=== PATIENT | female | born 1985 | race Caucasian/White ===

== ENCOUNTER 2016-03-24 14:27 | Emergency (ER) | payer BC, OTHER ==
[~2016-03-24] VITALS: Ht 170.2 cm; Wt 77.1 kg
[~2016-03-24 14:27] MED LIST: ADV1DS; ALBU17AE3; CIPR500T21 PO; ESOM20CA32 PO; LRT10T; METR500T PO; MTF500TCR; MULT-608 PO; NF-ESOM40C PO; OMEG-12 PO; OMG1KC; PRILOSEC; PRV20T; SPRN25T; VRP80T; YAZ
--- OUTSIDE RECORDS SUMMARY | 2016-03-24 14:32 | XMS REPORT | Continuity of Care Document ---
Author Author [facility] Organization [facility] Address Unknown Phone Unavailable Care Team Providers Care Field Interviewer Name Role Phone Allyson Webster PCP [phone] Source Comments Some departments are not documenting in the electronic medical record. If you do not see the information that you expected, contact Release of Information in the Health Information Management department at [phone] for further assistance in locating additional records.[facility] Active Allergies and Adverse Reactions No Known Allergies Current Medications Prescription Sig. Disp. Refills Start End Date Status Date Alosetron (LOTRONEX) 0.5 Take by mouth twice Active mg tab daily. esomeprazole DR(+) Take 40 mg by mouth every Active (NEXIUM) 40 mg capsule morning. Take on an empty stomach at least 1 hour before or 2 hours after food. MULTIVITAMIN PO Take by mouth daily. Active Active Problems Not on file Social History Tobacco Use Types Packs/Day Years Used Date Former Smoker Cigarettes Smokeless Tobacco: Former User Comments: Quit 5 years ago Alcohol Use Drinks/Week oz/Week Comments Yes 0 Standard 0.0 drinks or equivalent Last Filed Vital Signs Vital Sign Reading Time Taken Blood Pressure 125/68 12/19/2015 9:13 AM CDT Pulse 64 12/19/2015 9:13 AM CDT Temperature 36.8 C (98.2 F) 12/19/2015 9:13 AM CDT Respiratory Rate 20 12/19/2015 9:13 AM CDT Height 1.702 m (5' 7") 12/19/2015 9:13 AM CDT Weight 76.204 kg (168 lb) 12/19/2015 9:13 AM CDT Body Mass Index 26.31 12/19/2015 9:13 AM CDT Oxygen Saturation 100% 12/19/2015 9:13 AM CDT Plan of Care Health Maintenance Due Date Last Done Comments Physical (Comprehensive) 12/06/1990 Exam Pertussis Vaccine 12/06/1994 Tetanus Vaccine 12/06/2000 Cervical Cancer Screening 12/06/2004 Influenza Vaccine 10/26/2015 Results from Last 3 Months Not on file
--- NOTE | 2016-03-24 14:40 | ED Abdominal Pain ---
General Stated Complaint: DEHYDRATION/VOMITING/DIARRHEA Source of Information: Patient Exam Limitations: No Limitations History of Present Illness Time Seen By Provider: 14:39 Initial Comments To ER with nausea, and watery diarrhea without mucus or blood for 2 days. absence of vomiting. No fevers but she does report chills. She reports a history of Clostridium difficile infection last year she states but has not had any antibiotics recently. Timing/Duration: 2-3 Days Severity/Quality: Moderate, Aching Radiation: No Radiation Activities at Onset: None Associated Symptoms: Heartburn Nausea/Vomiting Allergies and Home Medications Allergies Coded Allergies: Latex (Verified Allergy, Unknown, 09/04/07) Home Medications Alosetron HCl 0.5 Mg Tab 0.5 MG PO BID (Reported) Esomeprazole Magnesium 22.3 Mg Capsule.dr 22.3 MG PO DAILY (Reported) Hyoscyamine Sulfate 0.125 Mg Tab.subl #20 0.125 MG SL Q6H PRN PRN CRAMPS Prescribed by: NANCY GONSALEZ on 03/24/16 1455 Loratadine 10 Mg Tablet 10 MG PO (Reported) Ondansetron 8 Mg Tab.rapdis #10 8 MG PO Q6H PRN PRN NAUSEA/VOMITING Prescribed by: NANCY GONSALEZ on 03/24/16 1455 Review of Systems Constitutional: see HPI chillsNo fever EENTM: No Symptoms Reported Respiratory: No Symptoms Reported Cardiovascular: No Symptoms Reported Gastrointestinal: See HPI Abdominal Pain Diarrhea Nausea Vomiting Genitourinary: No Symptoms Reported Musculoskeletal: no symptoms reported Skin: no symptoms reported Psychiatric/Neurological: No Symptoms Reported Endocrine: No Symptoms Reported Past Vwiuzop-Zwcemq-Acdddu Hx Patient Social History Recent Foreign Travel: No Contact w/Someone Who Travel: No Immunizations Up To Date Tetanus Booster (TDap): More than 5yrs PED Vaccines UTD: No Date of Influenza Vaccine: Dec 08, 2014 Surgeries HX Surgeries: Yes Surgeries: Gallbladder Respiratory Hx Respiratory Disorders: Yes Respiratory Disorders: Asthma Cardiovascular Hx Cardiac Disorders: No Neurological Hx Neurological Disorders: No Reproductive System Hx Reproductive Disorders: No Sexually Transmitted Disease: No Female Reproductive Disorders: Polycystic Ovarian Dis [employer] History: Hysterectomy Genitourinary Hx Genitourinary Disorders: No Gastrointestinal Hx Gastrointestinal Disorders: Yes (POST INFECTIOUS IBS WITH SPREW) Gastrointestinal Disorders: Colitis, Diverticulosis, Chronic Diarrhea, Irritable Bowel Musculoskeletal Hx Musculoskeletal Disorders: Yes (BACK PAIN ) Endocrine Hx Endocrine Disorders: No HEENT HX ENT Disorders: No Loss of Vision: Denies Hearing Impairment: Denies Cancer Hx Cancer: No Psychosocial Hx Psychiatric Problems: Yes Behavioral Health Disorders: Anxiety, Depression Integumentary HX Skin/Integumentary Disorder: No Blood Transfusions Hx Blood Disorders: No Family Medical History Family Medial History: Aphasia PARENTAL GRANDMOTHER Arthritis Cardiovascular disease 19 MOTHER MATERNAL GRANDFATHER Dementia Diabetes mellitus 19 MOTHER Hypercholesterolemia PARENTAL GRANDMOTHER Hypertension 19 MOTHER PARENTAL GRANDMOTHER MATERNAL GRANDFATHER Prostate cancer MATERNAL GRANDFATHER Physical Exam Vital Signs VS - Last 72 Hours, by Label 03/24/16 14:35 Temp 98.7 Pulse 85 Resp 14 B/P 152/83 Pulse Ox 100 O2 Delivery Room Air Capillary Refill : General Appearance: WD/WN no apparent distress HEENT: PERRL/EOMI normal ENT inspection Neck: non-tender full range of motion Respiratory: no respiratory distress no accessory muscle use Gastrointestinal: normal bowel sounds soft Extremities: normal range of motion non-tender normal inspection Neurologic/Psychiatric: alert normal mood/affect oriented x 3 Skin: normal color warm/dry Progress/Results/Core Measures Results/Orders Lab Results Laboratory Tests Test 03/24/16 14:35 03/24/16 15:32 Range/Units Alanine Aminotransferase (ALT/SGPT) 17 0-55 U/L Albumin 4.7 H 3.2-4.5 G/DL Alkaline Phosphatase 50 40-136 U/L Anion Gap 10 5-14 MMOL/L Aspartate Amino Transf (AST/SGOT) 16 5-34 U/L BUN/Creatinine Ratio 18 Basophils # (Auto) 0.0 0.0-0.1 10^3/uL Basophils (%) (Auto) 0 0-10 % Blood Urea Nitrogen 16 7-18 MG/DL Calcium Level 9.4 8.5-10.1 MG/DL Carbon Dioxide Level 23 21-32 MMOL/L Chloride Level 105 98-107 MMOL/L Creatinine 0.88 0.60-1.30 MG/DL Eosinophils # (Auto) 0.1 0.0-0.3 10^3/uL Eosinophils (%) (Auto) 1 0-10 % Estimat Glomerular Filtration Rate > 60 Glucose Level 113 H 70-105 MG/DL Hematocrit 40 35-52 % Hemoglobin 13.7 11.5-16.0 G/DL Lymphocytes # (Auto) 2.8 1.0-4.0 X 10^3 Lymphocytes (%) (Auto) 38 12-44 % Mean Corpuscular Hemoglobin 33 25-34 PG Mean Corpuscular Hemoglobin Concent 35 32-36 G/DL Mean Corpuscular Volume 96 80-99 FL Mean Platelet Volume 11.2 H 7.4-10.4 FL Monocytes # (Auto) 0.6 0.0-1.0 X 10^3 Monocytes (%) (Auto) 8 0-12 % Neutrophils # (Auto) 4.0 1.8-7.8 X 10^3 Neutrophils (%) (Auto) 53 42-75 % Platelet Count 198 130-400 10^3/uL Potassium Level 3.8 3.6-5.0 MMOL/L Red Blood Count 4.13 L 4.35-5.85 10^6/uL Red Cell Distribution Width 11.8 10.0-14.5 % Sodium Level 138 135-145 MMOL/L Total Bilirubin 0.7 0.1-1.0 MG/DL Total Protein 7.6 6.4-8.2 G/DL White Blood Count 7.5 4.3-11.0 10^3/uL Urine Bacteria NEGATIVE /HPF Urine Bilirubin NEGATIVE NEGATIVE Urine Casts NONE /LPF Urine Clarity CLEAR Urine Color YELLOW Urine Crystals NONE /LPF Urine Culture Indicated NO Urine Glucose (UA) NEGATIVE NEGATIVE Urine Ketones NEGATIVE NEGATIVE Urine Leukocyte Esterase NEGATIVE NEGATIVE Urine Mucus NEGATIVE /LPF Urine Nitrite NEGATIVE NEGATIVE Urine Protein NEGATIVE NEGATIVE Urine RBC NONE /HPF Urine RBC (Auto) NEGATIVE NEGATIVE Urine Specific [place] 1.010 L 1.016-1.022 Urine Squamous Epithelial Cells 5-10 /HPF Urine Urobilinogen NORMAL NORMAL MG/DL Urine WBC NONE /HPF Urine pH 6 5-9 My Orders Orders-NANCY GONSALEZ [employer]ATOR Cbc With Automated Diff (03/24/16 14:31) Comprehensive Metabolic Panel (03/24/16 14:31) Ua Culture If Indicated (03/24/16 14:31) Saline Lock/Iv-Start (03/24/16 14:31) Urine Bedside (03/24/16 14:31) Ns Iv 1000 Ml (Sodium Chloride 0.9%) (03/24/16 14:45) Ondansetron Injection (Zofran Injectio (03/24/16 14:45) Hyoscyamine Sl Tablet (Levsin Sl Tablet) (03/24/16 14:45) Urine Bedside (03/24/16 16:00) Medications Given in ED Current Medications Medications Dose Ordered Sig/Luana Route Start Time Stop Time Status Last Admin Dose Admin Hyoscyamine Sulfate 0.25 mg ONCE ONCE PO 03/24/16 14:45 03/24/16 14:46 DC 03/24/16 14:44 0.25 MG Ondansetron HCl 4 mg ONCE ONCE IVP 03/24/16 14:45 03/24/16 14:46 DC 03/24/16 14:44 4 MG Vital Signs/I&O Vital Sign - Last 12Hours 03/24/16 14:35 Temp 98.7 Pulse 85 Resp 14 B/P 152/83 Pulse Ox 100 O2 Delivery Room Air Departure Impression Impression: Primary Impression: nausea and diarrhea Additional Impression: Epigastric pain Disposition: HOME, SELF-CARE Condition: Stable Departure-Patient Inst. Decision time for Depature: 14:54 Referrals: MAEVE VEE DO (PCP/Family) Primary Care Physician Patient Instructions: NO INSTRUCTIONS GIVEN Add. Discharge Instructions: 1. Drink plenty of fluids 2. Medication as directed 3. See Dr. Vee later this week Scripts Ondansetron (Zofran Odt)8 Mg Tab.rapdis8 Mg PO Q6H PRN NAUSEA/VOMITING #10 TAB Prov:NANCY GONSALEZ [employer]PERATOR 03/24/16 Hyoscyamine Sulfate (Levsin-Sl)0.125 Mg Tab.subl0.125 Mg SL Q6H PRN CRAMPS #20 TAB Prov:NANCY GONSALEZ B[employer] OPERATOR 03/24/16 Copy Copies To 1: MAEVE VEE PETER J B[employer] M[employer] OPERATOR Mar 24, 2016 14:40
[2016-03-24 14:44] LABS: BASOPHILS % (AUTO) 0 % (0-10); EOSINOPHILS # (AUTO) 0.1 10^3/uL (0.0-0.3); EOSINOPHILS % (AUTO) 1 % (0-10); LYMPHOCYTES # (AUTO) 2.8 X 10^3 (1.0-4.0); LYMPHOCYTES % (AUTO) 38 % (12-44); MEAN CORPUSCULAR HEMOGLOBIN 33 PG (25-34); MEAN CORPUSCULAR HGB CONC 35 G/DL (32-36); MEAN CORPUSCULAR VOLUME 96 FL (80-99); MEAN PLATELET VOLUME 11.2 FL (7.4-10.4); MONOCYTES # (AUTO) 0.6 X 10^3 (0.0-1.0); MONOCYTES % (AUTO) 8 % (0-12); NEUTROPHILS % (AUTO) 53 % (42-75); PLATELET COUNT 198 10^3/uL (130-400); RED BLOOD COUNT 4.13 10^6/uL (4.35-5.85); RED CELL DISTRIBUTION WIDTH 11.8 % (10.0-14.5); WHITE BLOOD COUNT 7.5 10^3/uL (4.3-11.0)
[2016-03-24] MEDS ORDERED: NS IV 1000 ML 1,000 ML IV SCH (14:45)
[2016-03-24] MEDS ORDERED: HYOSCYAMINE 0.125 MG (LEVSIN) TAB PO ONE (14:45)
[2016-03-24] MEDS ORDERED: ONDANSETRON 4 MG/2 ML (SDV) Z0FRAN IVP ONE (14:45)
[2016-03-24] MEDS ORDERED: HYOS0.1283 SL ×2 (14:55→16:19)
[2016-03-24] MEDS ORDERED: ONDA8TAB9 PO ×2 (14:55→16:19)
[2016-03-24] MEDS ORDERED: LORA10TA76 PO (15:00)
[2016-03-24] MEDS ORDERED: NFALOSE0.5 PO (15:00)
[2016-03-24 15:02] LABS: ALANINE AMINOTRANSFERASE 17 U/L (0-55); ALBUMIN 4.7 G/DL (3.2-4.5); ANION GAP 10 MMOL/L (5-14); ASPARTATE AMINO TRANSFERASE 16 U/L (5-34); BILIRUBIN,TOTAL 0.7 MG/DL (0.1-1.0); BLOOD UREA NITROGEN 16 MG/DL (7-18); BUN/CREATININE RATIO 18; CALCIUM 9.4 MG/DL (8.5-10.1); CARBON DIOXIDE 23 MMOL/L (21-32); CHLORIDE 105 MMOL/L (98-107); CREATININE SERUM 0.88 MG/DL (0.60-1.30); GFR ESTIMATED > 60; GLUCOSE 113 MG/DL (70-105); POTASSIUM 3.8 MMOL/L (3.6-5.0); SODIUM 138 MMOL/L (135-145); TOTAL PROTEIN 7.6 G/DL (6.4-8.2)
[2016-03-24 15:37] LABS: BILIRUBIN,URINE NEGATIVE (NEGATIVE); KETONES,URINE NEGATIVE (NEGATIVE); LEUKOCYTE ESTERASE ,URINE NEGATIVE (NEGATIVE); NITRITE,URINE NEGATIVE (NEGATIVE); PH,URINE 6 (5-9); PROTEIN,URINE NEGATIVE (NEGATIVE); UROBILINOGEN,URINE NORMAL (NORMAL)
[2016-03-24 16:20] VITALS: BP 120/66
== END 2016-03-24 16:19 | disposition home or self-care (01) ==
LOC: EDUNIT# 14:27 → ER 14:29
DX: R19.7 Diarrhea, unspecified (principal); R11.0 Nausea; R10.13 Epigastric pain
CPT/HCPCS: 36415; 80053; 81000; 84703; 85025; 96361; 96374

== ENCOUNTER → 2016-03-27 | Outpatient (CLI) | payer OTHER ==
[~2016-03-27] MED LIST changes: +HYOS0.1283 SL; +LORA10TA76 PO; +NFALOSE0.5 PO; +ONDA8TAB9 PO
[2016-03-29 12:25] LABS: HERPES SIMPLEX VIRUS 1 IGG/EIA 1.86 Index (0.00-0.90); HERPES SIMPLEX VIRUS 2 IGG EIA 0.17 Index (0.00-0.90)
[2016-03-29 16:50] LABS: HERPES SIMPLEX 1 & 2 IGM AB 7.24 Index (0.00-0.89)
[2016-04-03 13:39] LABS: HERPES SIMPLEX VIRUS 1 IGM IFA <1:10 (<1:10)
[2016-04-03 13:41] LABS: HERPES SIMPLEX VIRUS 2 IGM IFA <1:10 (<1:10)
== END ==
LOC: LAB 11:27
PROVIDERS: ATTEND Nurse Practitioner
DX: B00.9 Herpesviral infection, unspecified (principal)
CPT/HCPCS: 36415; 86695; 86696

== ENCOUNTER 2016-08-14 14:13 | Emergency (ER) | payer SELFPAY ==
[~2016-08-14] VITALS: Ht 170.2 cm; Wt 77.1 kg
[2016-08-14] MEDS ORDERED: NS IV 1000 ML 1,000 ML IV ONE (15:03)
[2016-08-14] MEDS ORDERED: KETOROLAC 30 MG/ML VIAL IVP STA (15:03)
[2016-08-14 15:09] LABS: BASOPHILS % (AUTO) 0 % (0-10); EOSINOPHILS % (AUTO) 1 % (0-10); LYMPHOCYTES % (AUTO) 38 % (12-44); MEAN CORPUSCULAR HEMOGLOBIN 32 PG (25-34); MEAN CORPUSCULAR HGB CONC 34 G/DL (32-36); MEAN CORPUSCULAR VOLUME 97 FL (80-99); MEAN PLATELET VOLUME 11.5 FL (7.4-10.4); MONOCYTES # (AUTO) 0.6 X 10^3 (0.0-1.0); MONOCYTES % (AUTO) 8 % (0-12); NEUTROPHILS # (AUTO) 4.2 X 10^3 (1.8-7.8); NEUTROPHILS % (AUTO) 53 % (42-75); PLATELET COUNT 188 10^3/uL (130-400); RED BLOOD COUNT 4.04 10^6/uL (4.35-5.85); RED CELL DISTRIBUTION WIDTH 12.5 % (10.0-14.5); WHITE BLOOD COUNT 7.8 10^3/uL (4.3-11.0)
--- NOTE | 2016-08-14 15:14 | ED General ---
General Chief Complaint: Abdominal/GI Problems Stated Complaint: body aches/nausea/lethargic Nursing Triage Note: PT AMBULATED TO ROOM. PT STATES SHE HAS GENERAL BODY ACHES SINCE THIS WEEKEND. ACID IN HER BELLY AND "BURPING LIKE CRAZY". PT ALSO COMPLAINS OF PELVIC PAIN. Nursing Sepsis Screen: No Definite Risk Source of Information: Patient Exam Limitations: No Limitations History of Present Illness Time Seen by Provider: 14:58 Initial Comments Here with report of generalized body aches and abdominal pain. Feels epigastric discomfort and lower abdominal pain. States that she does have IBS and takes meds for that. She denies vomiting but states that she has quite a bit of nausea. Denies diarrhea but felt cramping. All of this is been going on for the last 3-4 days. Timing/Duration: 3-4 Days Severity: Moderate Associated Systoms: No Chest Pain, No Cough, Fever/Chills, Headaches, Loss of Appetite, Nausea/Vomiting, No Weakness Allergies and Home Medications Allergies Coded Allergies: Latex (Verified Allergy, Unknown, 09/04/07) Home Medications Alosetron HCl 0.5 Mg Tab, 0.5 MG PO BID, (Reported) Esomeprazole Magnesium 22.3 Mg Capsule.dr, 22.3 MG PO DAILY, (Reported) Hyoscyamine Sulfate 0.125 Mg Tab.subl, 0.125 MG SL Q6H PRN for CRAMPS, #20 . Prescribed by: NANCY GONSALEZ on 03/24/161618 Loratadine 10 Mg Tablet, 10 MG PO, (Reported) Ondansetron 8 Mg Tab.rapdis, 8 MG PO Q6H PRN for NAUSEA/VOMITING, #10 . Prescribed by: NANCY GONSALEZ on 03/24/161618 Constitutional: see HPI, chills, No fever EENTM: no symptoms reported Respiratory: no symptoms reported Cardiovascular: no symptoms reported Gastrointestinal: see HPI, abdominal pain, nausea, No vomiting Genitourinary: no symptoms reported Musculoskeletal: see HPI, muscle pain Skin: no symptoms reported All Other Systems Reviewed Negative Unless Noted: Yes Past Vrfwndy-Gbdpyw-Bydcgn Hx Patient Social History Alcohol Use: Rarely Uses Recreational Drug Use: No Smoking Status: Never a Smoker 2nd Hand Smoke Exposure: No Recent Foreign Travel: No Contact w/Someone Who Travel: No Recent Infectious Disease Expo: No Recent Hopitalizations: No Immunizations Up To Date Tetanus Booster (TDap): More than 5yrs PED Vaccines UTD: No Date of Influenza Vaccine: Dec 08, 2014 Seasonal Allergies Seasonal Allergies: Yes Surgeries HX Surgeries: Yes Surgeries: Adenoidectomy, Gallbladder, Hysterectomy, Tonsillectomy Respiratory Hx Respiratory Disorders: Yes Respiratory Disorders: Asthma Cardiovascular Hx Cardiac Disorders: No Neurological Hx Neurological Disorders: No Reproductive System Hx Reproductive Disorders: No Sexually Transmitted Disease: No Female Reproductive Disorders: Polycystic Ovarian Dis HOSPITAL NURSE History: Hysterectomy Genitourinary Hx Genitourinary Disorders: No Gastrointestinal Hx Gastrointestinal Disorders: Yes (POST INFECTIOUS IBS WITH SPREW) Gastrointestinal Disorders: Irritable Bowel Musculoskeletal Hx Musculoskeletal Disorders: Yes (BACK PAIN ) Endocrine Hx Endocrine Disorders: No HEENT HX ENT Disorders: No Loss of Vision: Denies Hearing Impairment: Denies Cancer Hx Cancer: No Psychosocial Hx Psychiatric Problems: Yes Behavioral Health Disorders: Anxiety, Depression Integumentary HX Skin/Integumentary Disorder: No Blood Transfusions Hx Blood Disorders: No Reviewed Nursing Assessment Reviewed/Agree w Nursing PMH: Yes Family Medical History Family Medial History: Aphasia PARENTAL GRANDMOTHER Arthritis Cardiovascular disease 19 MOTHER MATERNAL GRANDFATHER Dementia Diabetes mellitus 19 MOTHER Hypercholesterolemia PARENTAL GRANDMOTHER Hypertension 19 MOTHER PARENTAL GRANDMOTHER MATERNAL GRANDFATHER Prostate cancer MATERNAL GRANDFATHER Physical Exam Vital Signs Vital Sign - Last 12Hours 08/14/16 14:31 Temp 98.7 Pulse 72 Resp 20 B/P (MAP) 139/94 Pulse Ox 99 O2 Delivery Room Air Capillary Refill : Less Than 3 Seconds General Appearance: No Apparent Distress, WD/WN HEENT: PERRL/EOMI, TMs Normal, Pharynx Normal Neck: Full Range of Motion, Normal Inspection, Non Tender Respiratory: Lungs Clear, Normal Breath Sounds Cardiovascular: Regular Rate, Rhythm, No Murmur Gastrointestinal: Non Tender, Soft Back: Normal Inspection, No CVA Tenderness, No Vertebral Tenderness Extremity: Non Tender, No Calf Tenderness Neurologic/Psychiatric: Alert, Oriented x3 Skin: Normal Color, Warm/Dry Progress/Results/Core Measures Results/Orders Lab Results Laboratory Tests Test 08/14/16 14:46 08/14/16 15:15 Range/Units White Blood Count 7.8 4.3-11.0 10^3/uL Red Blood Count 4.04 L 4.35-5.85 10^6/uL Hemoglobin 13.1 11.5-16.0 G/DL Hematocrit 39 35-52 % Mean Corpuscular Volume 97 80-99 FL Mean Corpuscular Hemoglobin 32 25-34 PG Mean Corpuscular Hemoglobin Concent 34 32-36 G/DL Red Cell Distribution Width 12.5 10.0-14.5 % Platelet Count 188 130-400 10^3/uL Mean Platelet Volume 11.5 H 7.4-10.4 FL Neutrophils (%) (Auto) 53 42-75 % Lymphocytes (%) (Auto) 38 12-44 % Monocytes (%) (Auto) 8 0-12 % Eosinophils (%) (Auto) 1 0-10 % Basophils (%) (Auto) 0 0-10 % Neutrophils # (Auto) 4.2 1.8-7.8 X 10^3 Lymphocytes # (Auto) 3.0 1.0-4.0 X 10^3 Monocytes # (Auto) 0.6 0.0-1.0 X 10^3 Eosinophils # (Auto) 0.0 0.0-0.3 10^3/uL Basophils # (Auto) 0.0 0.0-0.1 10^3/uL Sodium Level 140 135-145 MMOL/L Potassium Level 4.1 3.6-5.0 MMOL/L Chloride Level 105 98-107 MMOL/L Carbon Dioxide Level 27 21-32 MMOL/L Anion Gap 8 5-14 MMOL/L Blood Urea Nitrogen 18 7-18 MG/DL Creatinine 0.79 0.60-1.30 MG/DL Estimat Glomerular Filtration Rate > 60 BUN/Creatinine Ratio 23 H 0-20 Glucose Level 92 70-105 MG/DL Calcium Level 9.7 8.5-10.1 MG/DL Total Bilirubin 0.6 0.1-1.0 MG/DL Aspartate Amino Transf (AST/SGOT) 19 5-34 U/L Alanine Aminotransferase (ALT/SGPT) 23 0-55 U/L Alkaline Phosphatase 45 40-136 U/L Total Protein 7.7 6.4-8.2 GM/DL Albumin 4.6 H 3.2-4.5 GM/DL Amylase Level 50 25-125 U/L Lipase 17 8-78 U/L Urine Color YELLOW Urine Clarity CLEAR Urine pH 7 5-9 Urine Specific [place] 1.005 L 1.016-1.022 Urine Protein NEGATIVE NEGATIVE Urine Glucose (UA) NEGATIVE NEGATIVE Urine Ketones NEGATIVE NEGATIVE Urine Nitrite NEGATIVE NEGATIVE Urine Bilirubin NEGATIVE NEGATIVE Urine Urobilinogen NORMAL NORMAL MG/DL Urine Leukocyte Esterase NEGATIVE NEGATIVE Urine RBC (Auto) NEGATIVE NEGATIVE Urine RBC NONE /HPF Urine WBC NONE /HPF Urine Squamous Epithelial Cells 2-5 /HPF Urine Crystals NONE /LPF Urine Bacteria NEGATIVE /HPF Urine Casts NONE /LPF Urine Mucus NEGATIVE /LPF Urine Culture Indicated NO My Orders Orders - DEYANIRA HOANG MD Amylase (08/14/16 15:03) Cbc With Automated Diff (08/14/16 15:03) Comprehensive Metabolic Panel (08/14/16 15:03) Lipase (08/14/16 15:03) Ua Culture If Indicated (08/14/16 15:03) Saline Lock/Iv-Start (08/14/16 15:03) Ns Iv 1000 Ml (Sodium Chloride 0.9%) (08/14/16 15:03) Ketorolac Injection (Toradol Injection) (08/14/16 15:03) Medications Given in ED Current Medications Medications Dose Ordered Sig/Luana Route Start Time Stop Time Status Last Admin Dose Admin Sodium Chloride 1,000 ml @ 0 mls/hr Q0M ONCE IV 08/14/16 15:03 08/14/16 15:05 DC 08/14/16 15:15 1,000 MLS/HR Vital Signs/I&O Vital Sign - Last 12Hours 08/14/16 14:31 Temp 98.7 Pulse 72 Resp 20 B/P (MAP) 139/94 Pulse Ox 99 O2 Delivery Room Air Blood Pressure Mean: 109 Progress Note : Progress Note Seen and evaluated. IV, labs, normal saline 1 L bolus, Toradol 30 mg IV ordered. UA ordered. Monitor patient. 1610: No acute findings on lab or UA studies. Patient feels a little bit better. She does admit to doing new abdominal workout which may have aggravated the abdominal muscles. In the absence of other findings, CT scan is likely more risk than benefit. We did discuss this at length and the patient is okay with foregoing CT at this point but will return for any concerns at which time we would reconsider CT scanning. Discharged home with return precautions. Patient verbalize understanding instructions and agreement with plan. Departure Impression Impression: Primary Impression: Lower abdominal pain Disposition: 01 HOME, SELF-CARE Condition: Stable Departure-Patient Inst. Decision time for Depature: 16:19 Referrals: MAEVE VEE DO (PCP/Family) Primary Care Physician Patient Instructions: Acute Abdomen (Belly Pain), Adult (DC) Add. Discharge Instructions: All discharge instructions reviewed with patient and/or family. Voiced understanding. You may take Tylenol 1000 mg every 8 hours as needed for pain. Drink plenty of fluids. Rest for the next few days. Return for worse pain, fever, vomiting, weakness, breathing problems, difficulty with going to the bathroom, blood in your vomit or stool or other concerns as needed. Follow-up with your DrGet in a few days for recheck as needed. DEYANIRA HOANG MD Aug 14, 2016 15:14
[2016-08-14 15:26] LABS: ALANINE AMINOTRANSFERASE 23 U/L (0-55); ALBUMIN 4.6 GM/DL (3.2-4.5); AMYLASE 50 U/L (25-125); ANION GAP 8 MMOL/L (5-14); ASPARTATE AMINO TRANSFERASE 19 U/L (5-34); BILIRUBIN,TOTAL 0.6 MG/DL (0.1-1.0); BLOOD UREA NITROGEN 18 MG/DL (7-18); BUN/CREATININE RATIO 23 (0-20); CALCIUM 9.7 MG/DL (8.5-10.1); CARBON DIOXIDE 27 MMOL/L (21-32); CHLORIDE 105 MMOL/L (98-107); CREATININE SERUM 0.79 MG/DL (0.60-1.30); GFR ESTIMATED > 60; GLUCOSE 92 MG/DL (70-105); HEMOLYSIS 10 (-100-29); ICTERUS 0.9 (-100-1.9); LIPASE 17 U/L (8-78); LIPEMIA 6 (-100-49); POTASSIUM 4.1 MMOL/L (3.6-5.0); SODIUM 140 MMOL/L (135-145); TOTAL PROTEIN 7.7 GM/DL (6.4-8.2)
[2016-08-14 15:34] LABS: BILIRUBIN,URINE NEGATIVE (NEGATIVE); KETONES,URINE NEGATIVE (NEGATIVE); LEUKOCYTE ESTERASE ,URINE NEGATIVE (NEGATIVE); NITRITE,URINE NEGATIVE (NEGATIVE); PH,URINE 7 (5-9); PROTEIN,URINE NEGATIVE (NEGATIVE); UROBILINOGEN,URINE NORMAL (NORMAL)
[2016-08-14 16:28] VITALS: BP 139/94
== END 2016-08-14 16:28 | disposition home or self-care (01) ==
LOC: EDUNIT# 14:13 → ER 14:16
DX: R10.30 Lower abdominal pain, unspecified (principal); F32.9 Major depressive disorder, single episode, unspecified; F41.9 Anxiety disorder, unspecified; J45.909 Unspecified asthma, uncomplicated; Z90.710 Acquired absence of both cervix and uterus; Z87.42 Personal history of other diseases of the female genital tract; Z87.19 Personal history of other diseases of the digestive system
CPT/HCPCS: 36415; 80053; 81000; 82150; 83690; 85025

== ENCOUNTER → 2016-12-10 | Outpatient (CLI) | payer OTHER ==
--- NOTE | 2016-12-10 19:01 | Diagnostic Imaging Report ---
PROCEDURE: US Thyroid. TECHNIQUE: Multiple real-time grayscale images were obtained of the thyroid in various projections. INDICATION: Thyroid lump on the left side. FINDINGS: The right thyroid lobe is 5.1 x 1.2 x 1.6 cm. The left lobe is 4.3 x 1.5 x 1.4 cm. The thyroid parenchyma is fairly homogeneous with no focal lesion. IMPRESSION: There is minimal increased fullness seen in the thyroid parenchyma of questionable clinical significance, with no focal lesion identified. Dictated by: Dictated on workstation # [id number]
== END ==
LOC: RAD 10:16
PROVIDERS: ATTEND Obstetrics & Gynecology
DX: E04.9 Nontoxic goiter, unspecified (principal)
CPT/HCPCS: 76536

== ENCOUNTER → 2016-12-10 | Outpatient (CLI) | payer OTHER ==
--- NOTE | 2016-12-11 11:16 | Diagnostic Imaging Report ---
Thyroid scan and uptake Technique: After the oral administration of 204 ?Ci of I-123 capsule, 4 hour and 24-hour uptake is measured and plantar images over the thyroid gland obtained. Indication: Left thyroid nodule FINDINGS: Thyroid uptake at 4 hours is 11 %, and the at 24 hours is 30 %. Planar images demonstrate no evidence of a cold or hot nodule. IMPRESSION: Normal thyroid uptake and scan. Dictated by: Dictated on workstation # [id number]
== END ==
LOC: CARD 10:19
PROVIDERS: ATTEND Obstetrics & Gynecology
DX: E04.1 Nontoxic single thyroid nodule (principal)
CPT/HCPCS: 78014

== ENCOUNTER → 2017-02-19 | Outpatient (CLI) | payer OTHER | LOC: CARD 10:47 | PROVIDERS: ATTEND Nurse Practitioner Family | DX: R00.2 Palpitations (principal) | CPT/HCPCS: 93005 ==

== ENCOUNTER → 2017-03-14 | Outpatient (CLI) | payer OTHER | LOC: CARD 08:30 | PROVIDERS: ATTEND Family Medicine | DX: R94.31 Abnormal electrocardiogram [ECG] [EKG] (principal) | CPT/HCPCS: 93306 ==

== ENCOUNTER → 2017-07-16 | Outpatient (CLI) | payer OTHER | LOC: CARD 11:45 | PROVIDERS: ATTEND Nurse Practitioner Family | DX: R06.00 Dyspnea, unspecified (principal); R07.9 Chest pain, unspecified; R42 Dizziness and giddiness | CPT/HCPCS: 93225; 93226 ==

== ENCOUNTER → 2017-07-23 | Outpatient (CLI) | payer OTHER | LOC: CARD 13:37 | PROVIDERS: ATTEND Physician Assistant | DX: R06.00 Dyspnea, unspecified (principal); R07.9 Chest pain, unspecified; R42 Dizziness and giddiness | CPT/HCPCS: 93017 ==

== ENCOUNTER → 2017-08-29 | Outpatient (CLI) | payer OTHER ==
--- NOTE | 2017-08-29 09:27 | Diagnostic Imaging Report ---
PROCEDURE: MR imaging of the brain without contrast. TECHNIQUE: Multiplanar, multisequence MR imaging of the brain was performed without contrast. DATE: 08/29/2017. COMPARISON: None. HISTORY: 31-year-old female, headaches and dizziness. FINDINGS: There is no restricted diffusion. There are no areas of abnormal intracranial susceptibility. There is preservation of normal intracranial flow voids. The ventricles and CSF spaces are normal in size and configuration for patient age. There is no abnormal extra axial fluid collection. There is no acute intracranial hemorrhage. There is no mass effect or midline shift. There is a focal area of increased T2 and FLAIR hyperintense signal in the left frontal lobe subcortical white matter on FLAIR sequence image 16 as well as a tiny focus of T2 and FLAIR hyperintense signal in the left periventricular white matter on FLAIR sequence image 17. There are no additional areas of abnormal intracranial signal. The midline sagittal structures are unremarkable in appearance. The visualized portions of the paranasal sinuses, mastoid air cells, and middle ears are well aerated. IMPRESSION: 1. No identified acute intracranial abnormality. 2. Two small punctate foci of T2 and FLAIR hyperintense signal in the left frontal subcortical white matter and left periventricular white matter which are entirely nonspecific. Differential diagnostic considerations for the findings would include minimal changes of chronic small vessel ischemic disease, demyelinating disease, and vasculitis. Dictated by: Dictated on workstation # [id number]
== END ==
LOC: RAD 08:02
PROVIDERS: ATTEND Otolaryngology Otolaryngology/Facial Plastic Surgery
DX: R90.82 White matter disease, unspecified (principal); R42 Dizziness and giddiness
CPT/HCPCS: 70551

== ENCOUNTER → 2018-09-17 | Outpatient (CLI) | payer SELFPAY ==
[2018-09-17 06:36] LABS: BASOPHILS % (AUTO) 0 % (0-10); EOSINOPHILS # (AUTO) 0.1 10^3/uL (0.0-0.3); EOSINOPHILS % (AUTO) 1 % (0-10); HEMATOCRIT 41 % (35-52); LYMPHOCYTES # (AUTO) 2.6 X 10^3 (1.0-4.0); LYMPHOCYTES % (AUTO) 44 % (12-44); MEAN CORPUSCULAR HEMOGLOBIN 32 PG (25-34); MEAN CORPUSCULAR HGB CONC 34 G/DL (32-36); MEAN CORPUSCULAR VOLUME 96 FL (80-99); MONOCYTES # (AUTO) 0.5 X 10^3 (0.0-1.0); MONOCYTES % (AUTO) 9 % (0-12); NEUTROPHILS # (AUTO) 2.7 X 10^3 (1.8-7.8); NEUTROPHILS % (AUTO) 46 % (42-75); PLATELET COUNT 191 10^3/uL (130-400); RED CELL DISTRIBUTION WIDTH 12.1 % (10.0-14.5); WHITE BLOOD COUNT 5.8 10^3/uL (4.3-11.0)
[2018-09-17 07:03] LABS: ALANINE AMINOTRANSFERASE 26 U/L (0-55); ALBUMIN 4.7 GM/DL (3.2-4.5); ALKALINE PHOSPHATASE 39 U/L (40-136); BILIRUBIN,TOTAL 0.7 MG/DL (0.1-1.0); BUN/CREATININE RATIO 18; CALCIUM 10.1 MG/DL (8.5-10.1); CARBON DIOXIDE 25 MMOL/L (21-32); CHLORIDE 105 MMOL/L (98-107); CREATININE SERUM 1.04 MG/DL (0.60-1.30); GFR ESTIMATED > 60; GLUCOSE 105 MG/DL (70-105); POTASSIUM 4.6 MMOL/L (3.6-5.0); SODIUM 138 MMOL/L (135-145)
[2018-09-17 07:24] LABS: FREE T4 (FREE THYROXINE) 1.08 NG/DL (0.70-1.48)
== END ==
LOC: LAB 06:15
PROVIDERS: ATTEND Family Medicine
DX: N95.1 Menopausal and female climacteric states (principal); L68.0 Hirsutism; F41.9 Anxiety disorder, unspecified
CPT/HCPCS: 36415; 80053; 82670; 84439; 84443; 85025

== ENCOUNTER 2018-10-15 09:57 | Emergency (ER) | payer SELFPAY ==
[~2018-10-15] VITALS: Ht 170.2 cm; Wt 76.7 kg
[2018-10-15] MEDS ORDERED: OMG1KC PO (10:28)
[2018-10-15] MEDS ORDERED: ZINC PO (10:28)
[2018-10-15 10:43] LABS: BILIRUBIN,URINE NEGATIVE (NEGATIVE); CLARITY,URINE CLEAR; COLOR,URINE GREEN; GLUCOSE, URINE (UA) NEGATIVE (NEGATIVE); KETONES,URINE NEGATIVE (NEGATIVE); LEUKOCYTE ESTERASE ,URINE NEGATIVE (NEGATIVE); NITRITE,URINE NEGATIVE (NEGATIVE); PH,URINE 6.5 (5-9); PROTEIN,URINE NEGATIVE (NEGATIVE); UROBILINOGEN,URINE NORMAL (NORMAL)
[2018-10-15 10:53] LABS: BACTERIA,URINE NEGATIVE /HPF; SQUAMOUS EPITHELIAL CELL,UR 0-2 /HPF
--- NOTE | 2018-10-15 10:55 | ED Abdominal Pain ---
General Chief Complaint: Abdominal/GI Problems Stated Complaint: ABD PAIN Nursing Triage Note: PT PRESENTS TO ED VIA PRIVATE AUTO WITH COMPLAINTS OF ABDOMAINL PAIN THAT RADIATES TO HER PELVIS, NAUSEA, AND CONSTIPATION X 2 DAYS. PT REPORTS GENERALIZED MALAISE. PT DENIES VOMITING OR DIAHRREA. Sepsis Screen: No Definite Risk Source of Information: Patient Exam Limitations: No Limitations History of Present Illness Date Seen by Provider: Oct 15, 2018 Time Seen by Provider: 10:53 Initial Comments To ER with abdominal cramping, irregular bowel movements, gas, eructation. This began yesterday, the night before she had taken a magnesium supplement that came out of form to be mixed with water. She took this at bedtime to help with sleep and anxiety, awakened the next morning to have diarrhea. She does have IBS with diarrhea for baseline takes medication to manage that daily. Throughout the day she's had persistent belching loose stools and abdominal cramping. She also has some pain in the right suprapubic region. Timing/Duration: 1-2 Days Severity/Quality: Cramping Location: Suprapubic Radiation: No Radiation Activities at Onset: None Associated Symptoms: Denies Symptoms Allergies and Home Medications Allergies Coded Allergies: Latex (Verified Allergy, Unknown, 09/04/07) Home Medications Alosetron HCl 0.5 Mg Tab, 0.5 MG PO BID, (Reported) Esomeprazole Magnesium 22.3 Mg Capsule.dr, 22.3 MG PO DAILY, (Reported) Hyoscyamine Sulfate 0.125 Mg Tab.subl, 0.125 MG SL Q6H PRN for CRAMPS . Prescribed by: NANCY GONSALEZ on 03/24/16 161 Ondansetron 8 Mg Tab.rapdis, 8 MG PO Q6H PRN for NAUSEA/VOMITING . Prescribed by: NANCY GONSALEZ on 03/24/161618 [Zinc ] , 15 MG PO DAILY, (Reported) Patient Home Medication List Home Medication List Reviewed: Yes Review of Systems Review of Systems Constitutional: see HPI EENTM: No Symptoms Reported Respiratory: No Symptoms Reported Cardiovascular: No Symptoms Reported Gastrointestinal: See HPI, Abdominal Pain, Diarrhea, Nausea Genitourinary: No Symptoms Reported Musculoskeletal: no symptoms reported Skin: no symptoms reported Psychiatric/Neurological: No Symptoms Reported Endocrine: No Symptoms Reported Hematologic/Lymphatic: No Symptoms Reported Past Niinenf-Pyeigd-Mysmhv Hx Patient Social History Alcohol Use: Denies Use Recreational Drug Use: No Smoking Status: Never a Smoker 2nd Hand Smoke Exposure: No Recent Foreign Travel: No Contact w/Someone Who Travel: No Recent Infectious Disease Expo: No Recent Hopitalizations: No Physical Abuse: No Sexual Abuse: No Mistreated: No Immunizations Up To Date Tetanus Booster (TDap): More than 5yrs PED Vaccines UTD: No Date of Influenza Vaccine: Dec 08, 2014 Seasonal Allergies Seasonal Allergies: Yes Past Medical History Surgeries: Yes (TONSILICTOMY, EGC, COLONOSOPY, SPIDER BITE REMOVED FROM THIGH) Adenoidectomy, Gallbladder, Hysterectomy, Tonsillectomy Respiratory: No Asthma Currently Using CPAP: No Currently Using BIPAP: No Cardiac: No Neurological: No Reproductive Disorders: No Female Reproductive Disorders: Polycystic Ovarian Dis SECOND BAKER History: Hysterectomy Sexually Transmitted Disease: No Genitourinary: No Gastrointestinal: Yes (POST INFECTIOUS IBS WITH SPREW) C-Diff, Irritable Bowel Musculoskeletal: Yes (BACK PAIN ) Endocrine: No Loss of Vision: Denies Hearing Impairment: Denies Cancer: No Psychosocial: Yes Anxiety, Depression Integumentary: No Blood Disorders: No Family Medical History Aphasia PARENTAL GRANDMOTHER Arthritis Cardiovascular disease 19 MOTHER MATERNAL GRANDFATHER Dementia Diabetes mellitus 19 MOTHER Hypercholesterolemia PARENTAL GRANDMOTHER Hypertension 19 MOTHER PARENTAL GRANDMOTHER MATERNAL GRANDFATHER Prostate cancer MATERNAL GRANDFATHER Physical Exam Vital Signs Vital Signs - First Documented 10/15/18 10:19 Temp 97.5 Pulse 70 Resp 20 B/P (MAP) 133/99 (110) Pulse Ox 99 Capillary Refill : Less Than 3 Seconds Height/Weight/BMI Height: 5'7.00" Weight: 169lbs. oz. [id number]; 28.97 BMI Method:Stated General Appearance: WD/WN, no apparent distress HEENT: PERRL/EOMI, normal ENT inspection Neck: non-tender, full range of motion Respiratory: no respiratory distress, no accessory muscle use Cardiovascular: regular rate, rhythm, no murmur Gastrointestinal: normal bowel sounds, non tender, soft Extremities: normal range of motion, non-tender Neurologic/Psychiatric: alert, normal mood/affect, oriented x 3 Skin: normal color, warm/dry Progress/Results/Core Measures Results/Orders Lab Results Laboratory Tests Test 10/15/18 10:36 10/15/18 10:38 10/15/18 10:51 Range/Units Urine Color GREEN H Urine Clarity CLEAR Urine pH 6.5 5-9 Urine Specific [place] 1.005 L 1.016-1.022 Urine Protein NEGATIVE NEGATIVE Urine Glucose (UA) NEGATIVE NEGATIVE Urine Ketones NEGATIVE NEGATIVE Urine Nitrite NEGATIVE NEGATIVE Urine Bilirubin NEGATIVE NEGATIVE Urine Urobilinogen NORMAL NORMAL MG/DL Urine Leukocyte Esterase NEGATIVE NEGATIVE Urine RBC (Auto) NEGATIVE NEGATIVE Urine RBC NONE /HPF Urine WBC NONE /HPF Urine Squamous Epithelial Cells 0-2 /HPF Urine Crystals NONE /LPF Urine Bacteria NEGATIVE /HPF Urine Casts NONE /LPF Urine Mucus NEGATIVE /LPF Urine Culture Indicated NO Urine Test NEGATIVE NEGATIVE White Blood Count 7.3 4.3-11.0 10^3/uL Red Blood Count 4.05 L 4.35-5.85 10^6/uL Hemoglobin 13.1 11.5-16.0 G/DL Hematocrit 39 35-52 % Mean Corpuscular Volume 96 80-99 FL Mean Corpuscular Hemoglobin 32 25-34 PG Mean Corpuscular Hemoglobin Concent 34 32-36 G/DL Red Cell Distribution Width 12.0 10.0-14.5 % Platelet Count 180 130-400 10^3/uL Mean Platelet Volume 11.5 H 7.4-10.4 FL Neutrophils (%) (Auto) 57 42-75 % Lymphocytes (%) (Auto) 35 12-44 % Monocytes (%) (Auto) 7 0-12 % Eosinophils (%) (Auto) 0 0-10 % Basophils (%) (Auto) 0 0-10 % Neutrophils # (Auto) 4.1 1.8-7.8 X 10^3 Lymphocytes # (Auto) 2.6 1.0-4.0 X 10^3 Monocytes # (Auto) 0.5 0.0-1.0 X 10^3 Eosinophils # (Auto) 0.0 0.0-0.3 10^3/uL Basophils # (Auto) 0.0 0.0-0.1 10^3/uL Sodium Level 139 135-145 MMOL/L Potassium Level 4.0 3.6-5.0 MMOL/L Chloride Level 105 98-107 MMOL/L Carbon Dioxide Level 26 21-32 MMOL/L Anion Gap 8 5-14 MMOL/L Blood Urea Nitrogen 21 H 7-18 MG/DL Creatinine 0.84 0.60-1.30 MG/DL Estimat Glomerular Filtration Rate > 60 BUN/Creatinine Ratio 25 Glucose Level 93 70-105 MG/DL Calcium Level 9.6 8.5-10.1 MG/DL Corrected Calcium 9.2 8.5-10.1 MG/DL Total Bilirubin 0.7 0.1-1.0 MG/DL Aspartate Amino Transf (AST/SGOT) 24 5-34 U/L Alanine Aminotransferase (ALT/SGPT) 30 0-55 U/L Alkaline Phosphatase 41 40-136 U/L Total Protein 7.7 6.4-8.2 GM/DL Albumin 4.5 3.2-4.5 GM/DL My Orders Orders - NANCY GONSALEZ APRN Hcg,Qualitative Urine (10/15/18 10:43) Cbc With Automated Diff (10/15/18 10:43) Comprehensive Metabolic Panel (10/15/18 10:43) Ed Iv/Invasive Line Start (10/15/18 10:43) Ct Abdomen/Pelvis Wo (10/15/18 10:52) Vital Signs/I&O 10/15/18 10:19 Temp 97.5 Pulse 70 Resp 20 B/P (MAP) 133/99 (110) Pulse Ox 99 Blood Pressure Mean: 110 Departure Impression Primary Impression: Bloating Additional Impression: Irregular bowel habits Disposition: 01 HOME, SELF-CARE Condition: Stable Departure-Patient Inst. Decision time for Depature: 11:25 Referrals: MAEVE VEE DO (PCP/Family) Primary Care Physician Patient Instructions: Gas and Bloating Add. Discharge Instructions: 1. Your CT scan is unremarkable, your labs also looked great. Your symptoms are most likely a component of irritable bowel syndrome combined with the magnesium that you took the other night.. Magnesium is a laxative.. All discharge instructions reviewed with patient and/or family. Voiced understanding. NANCY GONSALEZ APRN Oct 15, 2018 10:55
[2018-10-15 11:03] LABS: BASOPHILS % (AUTO) 0 % (0-10); EOSINOPHILS % (AUTO) 0 % (0-10); HEMATOCRIT 39 % (35-52); HEMOGLOBIN 13.1 G/DL (11.5-16.0); LYMPHOCYTES # (AUTO) 2.6 X 10^3 (1.0-4.0); LYMPHOCYTES % (AUTO) 35 % (12-44); MEAN CORPUSCULAR HEMOGLOBIN 32 PG (25-34); MEAN CORPUSCULAR HGB CONC 34 G/DL (32-36); MEAN CORPUSCULAR VOLUME 96 FL (80-99); MEAN PLATELET VOLUME 11.5 FL (7.4-10.4); MONOCYTES # (AUTO) 0.5 X 10^3 (0.0-1.0); MONOCYTES % (AUTO) 7 % (0-12); NEUTROPHILS # (AUTO) 4.1 X 10^3 (1.8-7.8); NEUTROPHILS % (AUTO) 57 % (42-75); PLATELET COUNT 180 10^3/uL (130-400); WHITE BLOOD COUNT 7.3 10^3/uL (4.3-11.0)
--- NOTE | 2018-10-15 11:19 | Diagnostic Imaging Report ---
PROCEDURE: CT abdomen and pelvis without contrast. TECHNIQUE: Multiple contiguous axial images were obtained through the abdomen and pelvis without the use of intravenous contrast. Auto Exposure Controls were utilized during the CT exam to meet ALARA standards for radiation dose reduction. INDICATION: Nausea and right lower abdominal pain. Correlation is made with prior CT from 03/15/2015. The lung bases are clear. No liver mass is detected. The gallbladder is surgically absent. No biliary ductal dilatation is seen. Unopacified pancreas is unremarkable. The spleen is unremarkable. No adrenal mass is detected. No definite renal calculi or hydronephrosis is detected. The aorta is non-aneurysmal. The bowel loops are normal caliber. There is no obstruction. There is no ascites. Bladder is unremarkable. The appendix is not well-visualized but no inflammatory changes in the right lower quadrant are seen. IMPRESSION: Unremarkable noncontrast CT of the abdomen. No acute feature is detected. Dictated by: Dictated on workstation # [id number]
[2018-10-15 11:23] LABS: ALANINE AMINOTRANSFERASE 30 U/L (0-55); ALBUMIN 4.5 GM/DL (3.2-4.5); ALKALINE PHOSPHATASE 41 U/L (40-136); BILIRUBIN,TOTAL 0.7 MG/DL (0.1-1.0); BUN/CREATININE RATIO 25; CALCIUM 9.6 MG/DL (8.5-10.1); CARBON DIOXIDE 26 MMOL/L (21-32); CHLORIDE 105 MMOL/L (98-107); CREATININE SERUM 0.84 MG/DL (0.60-1.30); GFR ESTIMATED > 60; GLUCOSE 93 MG/DL (70-105); SODIUM 139 MMOL/L (135-145); TOTAL PROTEIN 7.7 GM/DL (6.4-8.2)
[2018-10-15 11:39] VITALS: BP 128/83
== END 2018-10-15 11:38 | disposition home or self-care (01) ==
LOC: EDUNIT# 09:57 → ER 09:58
DX: R14.0 Abdominal distension (gaseous) (principal); R19.4 Change in bowel habit; F41.9 Anxiety disorder, unspecified; K58.9 Irritable bowel syndrome, unspecified; J45.909 Unspecified asthma, uncomplicated; F32.9 Major depressive disorder, single episode, unspecified; Z90.710 Acquired absence of both cervix and uterus; Z91.040 Latex allergy status; Z90.89 Acquired absence of other organs; Z82.49 Family history of ischemic heart disease and other diseases of the circulatory system; Z80.42 Family history of malignant neoplasm of prostate
CPT/HCPCS: 36415; 74176; 80053; 81000; 84703; 85025

== ENCOUNTER → 2019-01-05 | Outpatient (CLI) | payer OTHER ==
[~2019-01-05] MED LIST changes: +OMG1KC PO; +ZINC PO
--- NOTE | 2019-01-05 13:35 | Diagnostic Imaging Report ---
EXAMINATION: US Thyroid. TECHNIQUE: Multiple real-time grayscale images were obtained of the thyroid in various projections. HISTORY: PAIN IN THROAT FINDINGS: Comparison is 12/10/2016 and 01/23/2015. The right lobe of the thyroid measures 5.2 x 1.6 x 1.6 cm. The left lobe of the thyroid measures 4.7 x 1.4 x 1.3 cm. The size and echogenicity of the thyroid is normal. There is a left upper pole solid and hypoechoic nodule without other suspicious features measuring 8 x 3 x 4 mm. The assessment is TI-RADS 4. No follow-up is recommended based on its size. IMPRESSION: 1. No follow-up is required for a tiny left upper pole thyroid nodule. Thyroid gland is otherwise normal. TIRADS categories: TIRADS 1: Benign No FNA or follow-up required TIRADS 2: Not Suspicious No FNA or follow-up required TIRADS 3: Mildly Suspicious FNA if ? 2.5 cm Follow if ? 1.5 cm (At 1, 3 and 5 years from initial scan) TIRADS 4: Moderately Suspicious FNA if ? 1.5 cm Follow if ? 1 cm (At 1, 2, 3 and 5 years from initial scan) TIRADS 5: Highly Suspicious FNA if ? 1 cm Follow if ? 0.5 cm (Annually for 5 years from initial scan) Dictated by: Dictated on workstation # [id number]
== END ==
LOC: RAD 08:14
PROVIDERS: ATTEND Nurse Practitioner Family
DX: Z02.9 Encounter for administrative examinations, unspecified (principal); F41.0 Panic disorder [episodic paroxysmal anxiety]; F41.1 Generalized anxiety disorder; R07.0 Pain in throat
CPT/HCPCS: 76536

== ENCOUNTER → 2019-06-25 | Outpatient (CLI) | payer BC | LOC: LABNPT 13:31 | PROVIDERS: ATTEND Family Medicine | DX: R11.0 Nausea (principal); R51 Headache; R68.83 Chills (without fever); M79.10 Myalgia, unspecified site | CPT/HCPCS: 87635 ==

== ENCOUNTER → 2019-07-27 | Outpatient (CLI) | payer BC ==
--- NOTE | 2019-07-27 12:14 | Diagnostic Imaging Report ---
PROCEDURE: US carotid duplex, bilateral. TECHNIQUE: Multiple real-time grayscale images were obtained over the carotid arteries in various projections, bilaterally. Additional spectral analysis and color Doppler duplex images were also obtained. INDICATION: Vision changes There are no prior studies available for comparison. There is minimal soft plaque formation of both carotid systems. The flow velocities failed to show any sign of a hemodynamically significant stenosis of the common or internal carotid arteries. Both vertebral arteries were noted and there was antegrade flow bilaterally. IMPRESSION: There is no evidence for a hemodynamically significant stenosis of either carotid system. Parameters based on the consensus panel Spicer-Scale and Doppler ultrasound criteria published December 2002, Radiology, Volume 229. DOPPLER (peak systolic velocity M/S Right Left CCA 1.27 .97 ICA Proximal .79 .44 ICA Mid .92 .63 ICA Distal .87 .79 RATIO 0.7 0.8 ECA 1.08 .97 VERT .74 .80 Dictated by: Dictated on workstation # [id number]
== END ==
LOC: RAD 09:02
PROVIDERS: ATTEND Nurse Practitioner Family
DX: R42 Dizziness and giddiness (principal); R00.2 Palpitations; H53.8 Other visual disturbances
CPT/HCPCS: 93880

== ENCOUNTER → 2019-07-30 | Outpatient (CLI) | payer BC | LOC: CARD 13:32 | PROVIDERS: ATTEND Nurse Practitioner Family | DX: R00.2 Palpitations (principal); R51 Headache; R42 Dizziness and giddiness; H53.8 Other visual disturbances | CPT/HCPCS: 93306 ==

== ENCOUNTER → 2019-09-07 | Outpatient (CLI) | payer BC ==
--- NOTE | 2019-09-07 16:12 | Diagnostic Imaging Report ---
PROCEDURE: CT abdomen and pelvis without contrast. TECHNIQUE: Multiple contiguous axial images were obtained through the abdomen and pelvis without the use of intravenous contrast. Auto Exposure Controls were utilized during the CT exam to meet ALARA standards for radiation dose reduction. INDICATION: Severe lower abdominal pain for 3 weeks. Correlation is made with prior CT from 10/15/2018. The lung bases are clear. The liver is unremarkable. Gallbladder is surgically absent. No biliary ductal dilatation is seen. Pancreas and spleen are grossly unremarkable. No adrenal mass is identified. No renal calculi are detected. There is no evidence of hydronephrosis. Aorta is non-aneurysmal. A mild amount of stool in the colon is noted suggestive of constipation. Bowel loops are of normal caliber. No obstruction is seen. There is no free fluid or fluid collection identified. The bladder is unremarkable. The uterus appears to be surgically absent. No definite lymphadenopathy is seen. IMPRESSION: Moderate stool suggesting constipation. No acute feature in the abdomen or pelvis is identified. Dictated by: Dictated on workstation # [id number]
== END ==
LOC: RAD 15:34
PROVIDERS: ATTEND Nurse Practitioner Family
DX: K58.0 Irritable bowel syndrome with diarrhea (principal); F41.1 Generalized anxiety disorder; F33.1 Major depressive disorder, recurrent, moderate; J30.89 Other allergic rhinitis; R74.0 Nonspecific elevation of levels of transaminase and lactic acid dehydrogenase [LDH]; Z76.0 Encounter for issue of repeat prescription; Z90.49 Acquired absence of other specified parts of digestive tract
CPT/HCPCS: 74176

== ENCOUNTER → 2020-10-27 | Outpatient (CLI) | payer BC | LOC: LAB 10:39 | PROVIDERS: ATTEND Nurse Practitioner Family | DX: R07.9 Chest pain, unspecified (principal); R79.1 Abnormal coagulation profile | CPT/HCPCS: 36415; 85379 ==

== ENCOUNTER → 2021-01-12 | Outpatient (CLI) | payer BC ==
--- NOTE | 2021-01-12 09:28 | Diagnostic Imaging Report ---
INDICATION: Routine screening. 2-D and 3-D bilateral screening mammography was performed with CAD. Both breasts are heterogeneously dense, limiting the sensitivity of mammography. There is asymmetry in breast size, left being smaller. No mass or malignant-appearing microcalcifications are seen. There are occasional benign calcifications bilaterally. Axillae are unremarkable. IMPRESSION: BI-RADS Category 2 No mammographic features suspicious for malignancy are identified. ACR BI-RADS Category 2: Benign findings. Result letter will be mailed to the patient. Note: At least 10% of breast cancer is not imaged by mammography. Dictated by: Dictated on workstation # [id number]
== END ==
LOC: RAD 07:30
PROVIDERS: ATTEND Obstetrics & Gynecology
DX: Z12.31 Encounter for screening mammogram for malignant neoplasm of breast (principal)
CPT/HCPCS: 77063; 77067

== ENCOUNTER → 2021-03-14 | Outpatient (CLI) | payer BC | LOC: LABNPT 07:28 | PROVIDERS: ATTEND Family Medicine | DX: R50.9 Fever, unspecified (principal); R53.83 Other fatigue; R19.7 Diarrhea, unspecified; Z20.822 Contact with and (suspected) exposure to COVID-19 | CPT/HCPCS: 87635 ==

== ENCOUNTER → 2021-04-30 | Outpatient (CLI) | payer BC ==
--- NOTE | 2021-04-30 08:58 | Diagnostic Imaging Report ---
PROCEDURE: CT abdomen without contrast. TECHNIQUE: Multiple contiguous axial images were obtained through the abdomen without the use of intravenous contrast. Auto Exposure Controls were utilized during the CT exam to meet ALARA standards for radiation dose reduction. INDICATION: Epigastric pain. Left upper quadrant pain radiating down the left side. FINDINGS: The lung bases are clear. The liver, spleen, adrenals, and pancreas are unremarkable. The gallbladder is surgically absent. No ascites, fluid collection, hemorrhage, or biliary dilatation. There is an elevated fecal load, correlate for constipation. No small bowel dilatation. No pneumatosis or free gas. There is a tiny chronic fatty umbilical hernia, nonacute. No focal inflammatory process. There is no opaque kidney stone or hydronephrosis. The nonfocal spleen appears within normal limits in size. IMPRESSION: Colonic constipation; otherwise, unremarkable nonenhanced abdominal CT post cholecystectomy. Dictated by: Dictated on workstation # [id number]
== END ==
LOC: RAD 08:08
PROVIDERS: ATTEND Family Medicine
DX: K59.09 Other constipation (principal); R10.13 Epigastric pain; R10.12 Left upper quadrant pain; R11.2 Nausea with vomiting, unspecified; R19.7 Diarrhea, unspecified
CPT/HCPCS: 74150

== ENCOUNTER → 2022-12-06 | Outpatient (CLI) | payer BC ==
--- NOTE | 2022-12-06 17:42 | Diagnostic Imaging Report ---
INDICATION: Sinus pain and pressure. FINDINGS: AP, angled, and lateral views of the paranasal sinuses reveal no air-fluid level. There is no significant mural thickening. No bone destruction is identified. IMPRESSION: Unremarkable paranasal sinuses. Dictated by: Dictated on workstation # [id number]
== END ==
LOC: RAD 15:31
PROVIDERS: ATTEND Nurse Practitioner Family
DX: J34.9 Unspecified disorder of nose and nasal sinuses (principal)
CPT/HCPCS: 70220

== ENCOUNTER → 2022-12-13 | Outpatient (CLI) | payer BC ==
--- NOTE | 2022-12-13 12:32 | Diagnostic Imaging Report ---
PROCEDURE: CT sinuses without contrast TECHNIQUE: Multiple contiguous axial images were obtained through the sinuses without the use of intravenous contrast. Coronal and sagittal reformations were then performed. Auto Exposure Controls were utilized during the CT exam to meet ALARA standards for radiation dose reduction. INDICATION: J34.89, right facial pain. COMPARISON: 12/06/2022 FINDINGS: The frontal sinuses are clear. Ethmoid air cells are clear. Lamina papyracea are intact. Sphenoid sinuses are clear. The maxillary sinuses are clear besides minimal mucosal thickening of the inferior right maxillary sinus. The visualized mastoid air cells and middle ear cavities are clear. Leftward nasal septal deviation. The bilateral ostiomeatal complexes are widely patent. No temporomandibular joint dislocation. No acute facial fracture. No intracranial midline shift or obstructive hydrocephalus within the [id number]. The orbits are unremarkable. The parapharyngeal fat is symmetric and well maintained. The partially visualized muscles of mastication are unremarkable. No focal fluid collection. Retrobulbar fat is unremarkable. IMPRESSION: Minimal mucosal thickening within the inferior right maxillary sinus. Leftward nasal septal deviation. Dictated by: Dictated on workstation # [id number]
== END ==
LOC: RAD 11:19
PROVIDERS: ATTEND Nurse Practitioner Family
DX: J34.89 Other specified disorders of nose and nasal sinuses (principal); G50.1 Atypical facial pain; R51.9 Headache, unspecified
CPT/HCPCS: 70486